=== PATIENT | male | born 1990 | race Caucasian/White ===

== ENCOUNTER 2021-05-30 19:31 | Emergency (ER) | payer OTHER, SELFPAY ==
[2021-05-30] MEDS ORDERED: predniSONE 20 MG TAB ONE (21:52)
[2021-05-30] MEDS ORDERED: DIPHENHYDRAMINE 25 MG TAB/CAP ONE (21:52)
[2021-05-30] MEDS ORDERED: FAMOTIDINE 20 MG TAB ONE (21:53)
--- NOTE | 2021-05-30 22:26 | ER ---
Nurse's Notes [facility] Name: Reynaldo Wasserman Age: 30 yrs Sex: Male : 1990 Arrival Date: 05/30/2021 Time: 19:37 Bed 11 Private MD: Diagnosis: Urticaria, unspecified Presentation: 05/30 19:53 Chief complaint: Patient states: Rash began last night; states rash is all over body. vg1 Pt has a hx of 'jock itch' and states had a flare up yesterday and did not have anything to treat it and is unsure if that has any relation to it. Pt lips appear to be swollen as well. Denies shortness of breath or itchiness of throat. Coronavirus screen: Vaccine status: Patient reports receiving the 2nd dose of the covid vaccine. Client denies travel out of the [place] in the last 14 days. Ebola Screen: Patient negative for fever greater than or equal to 101.5 degrees Fahrenheit, and additional compatible Ebola Virus Disease symptoms. Onset: The symptoms/episode began/occurred yesterday. Anaphylaxis evaluation, no signs or symptoms of anaphylaxis were noted. Initial Sepsis Screen: Does the patient meet any 2 criteria? No. Patient's initial sepsis screen is negative. Does the patient have a suspected source of infection? No. Patient's initial sepsis screen is negative. Risk Assessment: Do you want to hurt yourself or someone else? Patient reports no desire to harm self or others. Onset of symptoms was May 29, 2021. 19:53 Method Of Arrival: Ambulatory vg1 19:53 Acuity: KONSTANTIN 3 vg1 Triage Assessment: 19:57 General: Appears in no apparent distress. uncomfortable, Behavior is calm, cooperative. vg1 Pain: Complains of pain in generalized body pain Pain currently is 6 out of 10 on a pain scale. Derm: Rash noted that is itchy, red, raised, on generalized. Historical: - Allergies: 19:57 No Known Allergies; vg1 - Home Meds: 19:57 None [Active]; vg1 - PMHx: 19:57 None; vg1 - PSHx: 19:57 None; vg1 - Immunization history:: Client reports receiving the 2nd dose of the Covid vaccine. - Social history:: Smoking status: Patient reports the use of cigarette tobacco products, denies chronic smoking, but will smoke occasionally. Screenin:34 Abuse screen: Denies threats or abuse. Denies injuries from another. Nutritional aj1 screening: No deficits noted. Tuberculosis screening: No symptoms or risk factors identified. 22:58 Fall Risk None identified. aj1 Assessment: 21:34 General: Appears in no apparent distress. uncomfortable, Behavior is calm, cooperative, aj1 appropriate for age. Pain: Complains of pain in generalized all over his body. Neuro: Level of Consciousness is awake, alert, obeys commands, Oriented to person, place, time, situation. Cardiovascular: Heart tones S1 S2 present Patient's skin is warm and dry. Respiratory: Airway is patent Respiratory effort is even, unlabored, Respiratory pattern is regular, symmetrical, Breath sounds are clear bilaterally. Denies cough, shortness of breath. GI: No signs and/or symptoms were reported involving the gastrointestinal system. : No signs and/or symptoms were reported regarding the genitourinary system. EENT: swelling noted to lips. Patient states that it feels like his lips are less swollen than when he arrived. Derm: Rash noted that is itchy, red, raised, on back, chest, abdomen, right arm, left arm, right leg and left leg. Musculoskeletal: No signs and/or symptoms reported regarding the musculoskeletal system. Circulation, motion, and sensation intact. 22:58 Reassessment: Patient appears in no apparent distress at this time. No changes from aj1 previously documented assessment. Patient and/or family updated on plan of care and expected duration. Pain level reassessed. Patient is alert, oriented x 3, equal unlabored respirations, skin warm/dry/pink. Vital Signs: 19:53 BP 141 / 91; Pulse 90; Resp 18; Temp 98.1; Pulse Ox 100% ; Weight 97.52 kg; Height 6 vg1 ft. 0 in. (182.88 cm); Pain 6/10; 21:36 BP 120 / 78; Pulse 95; Resp 18; Pulse Ox 98% on R/A; aj1 22:58 BP 125 / 76; Pulse 93; Resp 18; Pulse Ox 100% on R/A; aj1 19:53 Body Mass Index 29.16 (97.52 kg, 182.88 cm) vg1 ED Course: 19:37 Patient arrived in ED. bp1 19:57 Triage completed. vg1 19:57 Arm band placed on. vg1 21:32 Kenneth Fuller MD is Attending Physician. mh7 21:34 Mar Donahue, RN is Primary Nurse. aj1 21:34 Patient has correct armband on for positive identification. aj1 21:34 No provider procedures requiring assistance completed. aj1 22:24 Toribio Suazo MD is Referral Physician. 7 22:58 Patient did not have IV access during this emergency room visit. aj1 Administered Medications: 22:00 Drug: predniSONE 60 mg Route: PO; aj1 22:00 Drug: Benadryl (diphenhydrAMINE) 50 mg Route: PO; aj1 22:00 Drug: Pepcid (famotidine) 20 mg Route: PO; aj1 Outcome: 22:25 Discharge ordered by . 7 22:58 Discharged to home ambulatory. 1 22:58 Condition: good 22:58 Discharge instructions given to patient, Instructed on discharge instructions, follow up and referral plans. medication usage, Demonstrated understanding of instructions, follow-up care, medications, Prescriptions given X 3. 22:58 Patient left the ED. aj1 Signatures: Mar Donahue, RN RN aj1 Karely Hussein RN RN vg1 [facility] Kenneth Fuller MD MD [facility]
--- NOTE | 2021-05-30 22:26 | EDPHYS ---
Physician Documentation [facility] Name: Reynaldo Wasserman Age: 30 yrs Sex: Male : 1990 Arrival Date: 05/30/2021 Time: 19:37 Bed 11 Private MD: ED Physician Kenneth Fuller HPI: 05/30 21:48 This 30 yrs old Male presents to ER via Ambulatory with complaints of Allergic Reaction.mh7 21:48 The patient presents with itching, rash, that is diffuse. Onset: The symptoms/episode mh7 began/occurred yesterday. Associated signs and symptoms: Pertinent positives: hives, rash, Pertinent negatives: abdominal pain, Altered mental status chest pain, dysphagia, fever, headache, Light headed nausea, shortness of breath, swelling, Syncope vomiting. Possible causes: [place] dogs. At home the patient or guardian has treated the symptoms with nothing. Severity of symptoms: At their worst the symptoms were mild today, in the emergency department the symptoms are unchanged. Patient states that he ate some corn dogs yesterday and developed a rash and itching which improved overnight. He states he ate more corn dogs today and rash and itching increased. Denies any chest pain, shortness of breath, fever, nausea, vomiting, abdominal pain, throat swelling, tongue swelling, or difficulty swallowing.. Historical: - Allergies: 19:57 No Known Allergies; vg1 - Home Meds: 19:57 None [Active]; vg1 - PMHx: 19:57 None; vg1 - PSHx: 19:57 None; vg1 - Immunization history:: Client reports receiving the 2nd dose of the Covid vaccine. - Social history:: Smoking status: Patient reports the use of cigarette tobacco products, denies chronic smoking, but will smoke occasionally. ROS: 21:48 Constitutional: Negative for fever, chills, and weight loss, Eyes: Negative for injury, mh7 pain, redness, and discharge, ENT: Negative for injury, pain, and discharge, Neck: Negative for injury, pain, and swelling, Cardiovascular: Negative for chest pain, palpitations, and edema, Respiratory: Negative for shortness of breath, cough, wheezing, and pleuritic chest pain, Abdomen/GI: Negative for abdominal pain, nausea, vomiting, diarrhea, and constipation, Back: Negative for injury and pain, : Negative for injury, bleeding, discharge, and swelling, MS/Extremity: Negative for injury and deformity, Neuro: Negative for headache, weakness, numbness, tingling, and seizure, Psych: Negative for depression, anxiety, suicide ideation, homicidal ideation, and hallucinations, Endocrine: Negative for neck swelling, polydipsia, polyuria, polyphagia, and marked weight changes, Hematologic/Lymphatic: Negative for swollen nodes, abnormal bleeding, and unusual bruising. Exam: 21:48 Constitutional: This is a well developed, well nourished patient who is awake, alert, mh7 and in no acute distress. Head/Face: Normocephalic, atraumatic. Eyes: Pupils equal round and reactive to light, extra-ocular motions intact. Lids and lashes normal. Conjunctiva and sclera are non-icteric and not injected. Cornea within normal limits. Periorbital areas with no swelling, redness, or edema. ENT: Nares patent. No nasal discharge, no septal abnormalities noted. Tympanic membranes are normal and external auditory canals are clear. Oropharynx with no redness, swelling, or masses, exudates, or evidence of obstruction, uvula midline. Mucous membranes moist. Neck: Trachea midline, no thyromegaly or masses palpated, and no cervical lymphadenopathy. Supple, full range of motion without nuchal rigidity, or vertebral point tenderness. No Meningismus. Chest/axilla: Normal chest wall appearance and motion. Nontender with no deformity. No lesions are appreciated. Cardiovascular: Regular rate and rhythm with a normal S1 and S2. No gallops, murmurs, or rubs. Normal PMI, no JVD. No pulse deficits. Respiratory: Lungs have equal breath sounds bilaterally, clear to auscultation and percussion. No rales, rhonchi or wheezes noted. No increased work of breathing, no retractions or nasal flaring. Abdomen/GI: Soft, non-tender, with normal bowel sounds. No distension or tympany. No guarding or rebound. No evidence of tenderness throughout. Back: No spinal tenderness. No costovertebral tenderness. Full range of motion. 21:48 MS/ Extremity: Pulses equal, no cyanosis. Neurovascular intact. Full, normal range of motion. Neuro: Awake and alert, GCS 15, oriented to person, place, time, and situation. Cranial nerves II-XII grossly intact. Motor strength 5/5 in all extremities. Sensory grossly intact. Cerebellar exam normal. Normal gait. Psych: Awake, alert, with orientation to person, place and time. Behavior, mood, and affect are within normal limits. 21:48 Skin: rash a mild rash is noted, rash can be described as urticarial, urticaria, and is diffusely located. Vital Signs: 19:53 BP 141 / 91; Pulse 90; Resp 18; Temp 98.1; Pulse Ox 100% ; Weight 97.52 kg; Height 6 vg1 ft. 0 in. (182.88 cm); Pain 6/10; 21:36 BP 120 / 78; Pulse 95; Resp 18; Pulse Ox 98% on R/A; aj1 22:58 BP 125 / 76; Pulse 93; Resp 18; Pulse Ox 100% on R/A; aj1 19:53 Body Mass Index 29.16 (97.52 kg, 182.88 cm) vg1 MDM: 22:23 Differential diagnosis: anaphylaxis, angioedema, non IgE mediated drug reaction 7 urticaria. Data reviewed: vital signs, nurses notes. Data interpreted: Pulse oximetry: on room air is 98 %. Interpretation: normal. Counseling: I had a detailed discussion with the patient and/or guardian regarding: the historical points, exam findings, and any diagnostic results supporting the discharge/admit diagnosis, the need for outpatient follow up, a cyber operator, to return to the emergency department if symptoms worsen or persist or if there are any questions or concerns that arise at home. Response to treatment: the patient's symptoms have markedly improved after treatment. 22:25 Patient medically screened. [facility] Administered Medications: 22:00 Drug: predniSONE 60 mg Route: PO; aj1 22:00 Drug: Benadryl (diphenhydrAMINE) 50 mg Route: PO; aj1 22:00 Drug: Pepcid (famotidine) 20 mg Route: PO; aj1 Disposition Summary: 05/30/21 22:25 Discharge Ordered Location: Home [facility] Problem: new [facility] Symptoms: have improved mh Condition: Stable [facility] Diagnosis - Urticaria, unspecified mh7 Followup: [facility] - With: Private Physician - When: 1 - 2 days - Reason: Worsening of condition, Recheck today's complaints, Continuance of care, Re-evaluation by your physician Followup: [facility] - With: Toribio Suazo MD - When: 2 - 3 days - Reason: Worsening of condition, Recheck today's complaints Discharge Instructions: - Discharge Summary Sheet [facility] - Rash, Adult, [id number] [facility] - Hives, [id number] [facility] - Allergies, Adult, [id number] [facility] Forms: - Medication Reconciliation Form [facility] - Thank You Letter [facility] - Antibiotic Education [facility] - Prescription Opioid Use [facility] Prescriptions: - Benadryl 25 mg Oral Capsule - take 1 capsule by ORAL route every 6 hours As needed; 30 tablet; Refills: 0, [facility] Product Selection Permitted - Pepcid 20 mg Oral Tablet - take 1 tablet by ORAL route every 12 hours for 5 days; 10 tablet; Refills: 0, [facility] Product Selection Permitted - Prednisone 20 mg Oral Tablet - take 2 tablets by ORAL route once daily for 5 days; 10 tablet; Refills: 0, [facility] Product Selection Permitted Signatures: Mar Donahue RN RN aj1 Karely Hussein RN RN vg1 Kenneth Fuller MD MD [facility]
[2021-05-30 23:03] VITALS: TEMP 98.1
[2021-05-30 23:05] VITALS: BP 125/76; O2SAT 100
== END 2021-05-30 22:58 | disposition home or self-care (01) ==
LOC: ER 19:31
DX: L50.9 Urticaria, unspecified (principal); F17.210 Nicotine dependence, cigarettes, uncomplicated
CPT/HCPCS: 99283; J7512